=== PATIENT | male | born 1975 | race Caucasian/White ===

== ENCOUNTER 2020-01-13 09:07 | Emergency (ER) | payer OTHER ==
[~2020-01-13] VITALS: Ht 180.3 cm; Wt 99.8 kg
--- NOTE | 2020-01-13 09:20 | NUR ---
pt ambulatory to er bed 04. pt states he had a seizure episode this morning. states been off of his keppra medication after being "kicked out" of his board and care facility 1 week ago. also c/o being suicidal w/ plan to jump in front of a bus. pt is willing to go voluntary to a psych facility. pt is aaox4, anxious states last etoh was 2 days ago. stable vitals. security called for wanding. belongings to secure locker. awaiting md dodson.
--- NOTE | 2020-01-13 09:27 | NUR ---
dr bass at bedside for eval.
[2020-01-13] MEDS ORDERED: LEVETIRACETAM (250 MG) 250 MG TABLET PO ONE ×4 (09:30→19:45)
--- NOTE | 2020-01-13 09:45 | NUR ---
iv line started blood drawn and sent to lab.
[2020-01-13 09:48] LABS: BASOPHILS % (AUTO) 0.9 % (0.0-2.0); EOSINOPHILS % (AUTO) 0.2 % (0.0-6.0); HEMATOCRIT 49 % (39-51); HEMOGLOBIN 16.7 g/dL (13.5-17.5); LYMPHOCYTES # (AUTO) 1.4 /CMM (0.8-4.8); LYMPHOCYTES % (AUTO) 26.5 % (20.0-44.0); MEAN CORPUSCULAR HGB CONC 34 g/dl (31.0-36.0); MEAN CORPUSCULAR VOLUME 99 fL (80-96); MONOCYTES # (AUTO) 0.7 /CMM (0.1-1.30); MONOCYTES % (AUTO) 13.8 % (2.0-12.0); NEUTROPHILS % (AUTO) 58.6 % (43.0-81.0); PLATELET COUNT (AUTO) 334 /CMM (150-450); RED BLOOD CELL COUNT(AUTO) 4.95 MIL/uL (4.5-6.0); WHITE BLOOD COUNT (AUTO) 5.1 K/uL (4.3-11.0)
[2020-01-13] MEDS ORDERED: ONDANSETRON HCL/PF 4 MG/2 ML VIAL ONE (09:50)
[2020-01-13] MEDS ORDERED: LORAZEPAM INJ 2 MG/ML VIAL ONE ×2 (09:51→11:26)
[2020-01-13] MEDS ORDERED: IV NS 0.9% 1,000 ML BAG IV ONE (10:00)
[2020-01-13] MEDS ORDERED: LORAZEPAM INJ 2 MG/ML VIAL IV ONE ×2 (10:00→11:30)
[2020-01-13] MEDS ORDERED: ONDANSETRON HCL/PF 4 MG/2 ML VIAL IVP ONE (10:00)
--- NOTE | 2020-01-13 10:00 | NUR ---
pt to radiology for head ct scan via [facility].
--- NOTE | 2020-01-13 10:00 | NUR ---
Patient belongigs to safe /security
[2020-01-13 10:05] LABS: ALANINE AMINOTRANSFERASE 140 U/L (12-78); ALBUMIN 4.2 g/dL (3.4-5.0); ALCOHOL, BLOOD < 3 mg/dL (0-0); ALKALINE PHOSPHATASE 47 U/L (46-116); ASPARTATE AMINOTRANSFERASE 49 U/L (15-37); BILIRUBIN,DIRECT 0.2 mg/dL (0.0-0.2); BILIRUBIN,TOTAL 0.9 mg/dL (0.2-1.0); CALCIUM, SERUM 9.2 mg/dL (8.5-10.1); CARBON DIOXIDE 27 mmol/L (21-32); CHLORIDE 99 mmol/L (98-107); CREATININE 0.9 mg/dL (0.6-1.3); GLUCOSE 98 mg/dL (74-106); POTASSIUM 3.8 mmol/L (3.5-5.1); SALICYLATE 3.6 mg/dL (2.8-20.0); SODIUM SERUM 136 mmol/L (136-145); UREA NITROGEN, BLOOD 8 mg/dL (7-18)
[2020-01-13 10:06] LABS: ACETAMINOPHEN < 2 ug/ml (10-30)
--- NOTE | 2020-01-13 10:27 | NUR ---
URINAL GIVEN BUT UNABLE TO PROVIDE URINE SPECIMEN THIS TIME.
[2020-01-13] MEDS ORDERED: CHLORDIAZEPOXIDE HCL 25 MG CAPSULE ONE (11:50)
[2020-01-13] MEDS ORDERED: LEVE500T20 PO (11:59)
[2020-01-13] MEDS ORDERED: RISP0.2515 PO (11:59)
[2020-01-13] MEDS ORDERED: DIVA500T2 PO (11:59)
[2020-01-13] MEDS ORDERED: FLUO40CA8 PO (11:59)
[2020-01-13] MEDS ORDERED: CHLORDIAZEPOXIDE HCL 25 MG CAPSULE PO ONE (12:00)
[2020-01-13 12:46] LABS: APPEARANCE,URINE CLEAR (CLEAR); BILIRUBIN,URINE NEGATIVE (NEGATIVE); BLOOD, URINE NEGATIVE Ery/uL (NEGATIVE); COLOR,URINE YELLOW (YELLOW); KETONES,URINE 15 (NEGATIVE); LEUKOCYTE ESTERASE ,URINE NEGATIVE (NEGATIVE); NITRITE, URINE NEGATIVE (NEGATIVE); PH,URINE 7.5 (5.0-8.0); PROTEIN,URINE NEGATIVE (NEGATIVE); UGLUCOSE NEGATIVE (NEGATIVE); UROBILINOGEN,URINE 0.2 EU/dL (0.2)
[2020-01-13 12:56] LABS: BACTERIA,URINE None seen /HPF (None Seen); RBC,URINE 0-2 /HPF (0-2); SQUAMOUS EPITHELIAL CELL,UR Rare /HPF (None Seen); WBC,URINE 0-1 /HPF (0-3)
--- NOTE | 2020-01-13 17:01 | NUR ---
pt resting in bed. watching tv. on monitor. stable vitals. sitter at bedside. will continue to monitor.
--- NOTE | 2020-01-13 18:30 | NUR ---
P[facility]ED [facility] ETA 20 MIN
--- NOTE | 2020-01-13 19:17 | NUR ---
PT PROVIDED WITH FOOD AND WATER. PLACED ON MONITOR AND PULSE OX. VSS.
[2020-01-13] MEDS ORDERED: DIVALPROEX SODIUM 500 MG TABLET.DR PO ONE ×2 (19:30→19:45)
[2020-01-13] MEDS ORDERED: OLANZAPINE 5 MG TABLET PO ONE (19:30)
[2020-01-13] MEDS ORDERED: OLANZAPINE 5 MG TABLET ONE (19:45)
--- NOTE | 2020-01-13 22:28 | NUR ---
PATIENT IS SLEEPING. CHEST IS RISING EVENLY WITH NO SIGNS OF DISTRESS. CONNECTED TO THE MONITOR. SITTER AT BEDSIDE. SIDE-RAILS UP FOR SAFETY.
--- NOTE | 2020-01-14 00:54 | NUR ---
PATIENT IS SLEEP. EASILY AROUSABLE. CONNECTED TO MONITOR. BREATHING EVENLY AND UNLABORED. SITTER AT BEDSIDE.
--- NOTE | 2020-01-14 04:47 | NUR ---
PT RESTING COMFORTABLY IN BED. VITAL SIGNS STABLE. NO ACUTE DISTRESS NOTED AT THIS TIME. WILL CONTINUE TO MONITOR
--- NOTE | 2020-01-14 05:52 | NUR ---
PATIENT IS SLEEPING. EASILY AROUSABLE THROUGH TOUCH AND VOICE. CONNECTED TO MONITOR. BREATHING EVENLY AND UNLABORED ON ROOM AIR. CONNECTED TO MONITOR. SITTER AT BEDSIDE.
--- NOTE | 2020-01-14 06:15 | NUR ---
Patient is resting comfortably in bed. Easily aroused. VSS.
--- NOTE | 2020-01-14 06:54 | NUR ---
SPOKE WITH ELY FROM [facility], STILL NO BEDS AVAILABLE AT THIS TIME
--- NOTE | 2020-01-14 08:40 | NUR ---
SHIRT FINISHER contacted Judson at [facility] to f/u regarding bed availability. Per Judson, they will have discharges at noon and will be able to accept pt after 12PM. SHIRT FINISHER updated ED CRN Gener with aforementioned information.
--- NOTE | 2020-01-14 11:13 | NUR ---
ACCEPTED AT [facility]. # [id number] UNIT #1. DR. SOTO/DR. PERRY REPORT: [phone]
--- NOTE | 2020-01-14 11:30 | NUR ---
SPOKE TO ALKA FROM [id number], WAITING FOR TRANSPORT ETA, CONFIRMATION NUMBER: [id number].
--- NOTE | 2020-01-14 11:50 | NUR ---
CALL THE CAR ETA 1300, SPOKE TO BRINA. CONFIRMATION NUMBER: [id number]
[2020-01-14 12:40] VITALS: BP 121/74
[2020-01-14] MEDS ORDERED: MAG HYDROX/AL HYDROX/SIMETH 30 ML UDC ONE (12:47)
--- NOTE | 2020-01-14 12:52 | NUR ---
pt c/o upset stomach, dr hernandez aware. medicated as oreder. see emar.
[2020-01-14] MEDS ORDERED: MAG HYDROX/AL HYDROX/SIMETH 30 ML UDC PO ONE (13:00)
== END 2020-01-14 15:54 ==
LOC: ER 09:12
DX: S00.03XA Contusion of scalp, initial encounter (principal); F10.129 Alcohol abuse with intoxication, unspecified; R74.0 Nonspecific elevation of levels of transaminase and lactic acid dehydrogenase [LDH]; R51 Headache; R56.9 Unspecified convulsions; F20.9 Schizophrenia, unspecified; F43.10 Post-traumatic stress disorder, unspecified; Y90.0 Blood alcohol level of less than 20 mg/100 ml; Z79.899 Other long term (current) drug therapy; Z04.6 Encounter for general psychiatric examination, requested by authority; W50.1XXA Accidental kick by another person, initial encounter; Y93.89 Activity, other specified; Y92.89 Other specified places as the place of occurrence of the external cause; Y99.8 Other external cause status
CPT/HCPCS: 36415; 70450; 80048; 80076; 80305; 80307; 80329; 81001; 85025; 96374; 96375; 96376; 99285; G0480; J2060 ×2; J2405; J7030; 81000-TC